=== PATIENT | female | born 1960 | race Two or more races ===

== ENCOUNTER 2017-09-04 19:20 | Inpatient (IN) | payer MEDICAID, OTHER ==
[~2017-09-04] VITALS: Ht 170.2 cm; Wt 96.3 kg
[2017-09-04] MEDS: SODIUM CHLORIDE 0.9% 1,000 ML IV SCH (01:00)
[~2017-09-04 19:20] MED LIST: ASPI81TA27 PO; ATOR80TA PO; CLOP75TA28 PO; IBUP800T24 PO; METF-370 PO; METO-158 PO; NITR400A5 TL; RAMI10CA18 PO
[2017-09-04] MEDS ORDERED: MORPHINE SULFATE 4 MG/ML SYR/VIAL IV ONE (20:30)
[2017-09-04] MEDS ORDERED: NITROGLYCERIN 0.2MG/HR TOPICAL PATCH TD ONE (20:30)
[2017-09-04 20:47] LABS: Urine Bacteria NONE SEEN /hpf (None Seen); Urine Blood Negative /uL (Negative); Urine Mucus FEW (None Seen); Urine Specific Gravity 1.016 (1.001-1.035); Urine WBC 1 /hpf (0 - 5)
[2017-09-04 20:49] LABS: Basophils # (auto) 0.1 uL; Basophils % (auto) 0.7 % (0.0-2.0); Eosinophils # (auto) 0.2 uL; Eosinophils % (auto) 2.1 % (0.0-7.0); Hematocrit 38.8 % (36.0-46.0); Hemoglobin 12.6 g/dL (12.2-16.2); Lymphocytes # (auto) 2.4 uL; Lymphocytes % (auto) 24.1 % (10.0-50.0); Mean Corpuscular Hemoglobin 28.6 pg (28.0-32.0); Mean Corpuscular Hgb Conc. 32.6 g/dL (32.0-36.0); Mean Corpuscular Volume 87.7 fL (80.0-100.0); Monocytes # (auto) 0.5 uL; Monocytes % (auto) 4.9 % (0.0-12.0); Neutrophils # (auto) 6.9 uL; Neutrophils % (auto) 68.2 % (37.0-80.0); Nucleated Red Blood Cells % 0.1 %; Platelet Count (auto) 290 10^3/uL (140-450); Red Blood Cells 4.42 10^6/uL (4.0-5.20); Red Cell Distribution Width 14.4 % (11.8-14.3); White Blood Cell 10.1 10^3/uL (4.4-10.8)
[2017-09-04 21:01] LABS: INR 0.89 (0.9-1.15); Partial Thromboplastin Time 26.8 sec (22.64-33.71); Prothrombin Time 9.7 sec (9.37-12.3)
[2017-09-04 21:04] LABS: Albumin 3.4 g/dL (3.4-5.0); Calcium 8.6 mg/dL (8.5-10.1); Magnesium 1.7 mg/dL (1.6-2.6); Potassium 4.4 mmol/L (3.5-5.1)
[2017-09-04 21:06] LABS: BUN/Creatinine Ratio 16.3
[2017-09-04 21:11] LABS: Bilirubin, Total 0.3 mg/dL (0.2-1.0); Total Protein 7.7 g/dL (6.4-8.2)
[2017-09-04] MEDS ORDERED: DEXTROSE (50%) 50ML SYRG IV PRN (23:45)
[2017-09-04] MEDS ORDERED: ONDANSETRON HCL 4 MG/2 ML VIAL IV PRN (23:45)
[2017-09-04] MEDS ORDERED: NITROGLYCERIN 0.4 MG SL TAB SL PRN (23:45)
[2017-09-04] MEDS ORDERED: ENOXAPARIN SOD 100 MG/1 ML SYRINGE SC ONE (23:45)
[2017-09-05] VITALS (7 sets, daily range): BP systolic 122–151; BP diastolic 65–82
[2017-09-05] MEDS: ACCU-CHEK COMFORT CURVE STRIP VI SCH ×4 (00:22→17:45)
[2017-09-05] MEDS: InsuLIN REG 1unit/0.01ml Soln (100units/ml) SC SCH ×5 (00:29→23:19)
[2017-09-05] MEDS: MORPHINE SULFATE 4 MG/ML SYR/VIAL IV PRN ×2 (01:00→04:20)
[2017-09-05 05:37] LABS: Basophils # (auto) 0 uL; Basophils % (auto) 0.6 % (0.0-2.0); Eosinophils # (auto) 0.2 uL; Eosinophils % (auto) 2.4 % (0.0-7.0); Hematocrit 34.6 % (36.0-46.0); Hemoglobin 11.6 g/dL (12.2-16.2); Lymphocytes # (auto) 2.9 uL; Lymphocytes % (auto) 36.5 % (10.0-50.0); Mean Corpuscular Hemoglobin 29.4 pg (28.0-32.0); Mean Corpuscular Hgb Conc. 33.5 g/dL (32.0-36.0); Mean Corpuscular Volume 87.5 fL (80.0-100.0); Monocytes # (auto) 0.4 uL; Monocytes % (auto) 4.6 % (0.0-12.0); Neutrophils # (auto) 4.5 uL; Neutrophils % (auto) 55.9 % (37.0-80.0); Nucleated Red Blood Cells % 0.1 %; Platelet Count (auto) 251 10^3/uL (140-450); Red Blood Cells 3.96 10^6/uL (4.0-5.20); Red Cell Distribution Width 14.1 % (11.8-14.3)
[2017-09-05 05:57] LABS: Albumin 3.2 g/dL (3.4-5.0); Bilirubin, Total 0.4 mg/dL (0.2-1.0); Calcium 8.6 mg/dL (8.5-10.1); Potassium 3.8 mmol/L (3.5-5.1)
[2017-09-05] MEDS ORDERED: GLIP-116 PO (09:25)
[2017-09-05] MEDS ORDERED: PRAS10TA6 PO (09:25)
[2017-09-05] MEDS ORDERED: METF-370 PO (09:25)
[2017-09-05] MEDS: FAMOTIDINE 20 MG TAB PO SCH ×2 (09:50→23:17)
[2017-09-05] MEDS: ASPirin 81 mg TAB PO SCH (09:50)
[2017-09-05] MEDS: METOPROLOL TARTRATE 50 MG TAB PO SCH ×2 (09:51→23:18)
[2017-09-05] MEDS: RAMIPRIL 10 MG CAP PO SCH (09:52)
[2017-09-05] MEDS ORDERED: PRASUGREL HCL 10 MG TAB PO SCH (10:00)
[2017-09-05] MEDS ORDERED: ENOXAPARIN SOD 40 MG/0.4 ML SYRINGE SC SCH (10:00)
[2017-09-05] MEDS ORDERED: CLOPIDOGREL BISULFATE 75 MG TAB PO SCH (10:00)
[2017-09-05] MEDS: ACETAMINOPHEN 325 MG TAB PO PRN (10:02)
[2017-09-05] MEDS ORDERED: LIDOCAINE 2%HCL (LOCAL ANESTH.) INJ 20ML MDV ONE (11:16)
[2017-09-05] MEDS ORDERED: IOHEXOL 350 MG/ML 100ML IJ ONE (11:16)
[2017-09-05] MEDS: ENOXAPARIN SOD 100 MG/1 ML SYRINGE SC SCH (12:00)
[2017-09-05] MEDS ORDERED: SODIUM CHL 0.9% 50 ML ONE (12:05)
[2017-09-05] MEDS ORDERED: fentaNYL CITRATE 100 MCG/2 ML VL ONE (12:05)
[2017-09-05] MEDS ORDERED: MIDAZOLAM HCL 1MG/1ML-2 ML VIAL ONE (12:05)
[2017-09-05] MEDS ORDERED: ANGIOMAX 250 MG VIAL IV ONE (12:05)
[2017-09-05] MEDS: SODIUM CHLORIDE 0.9% 1,000 ML IV SCH (16:25)
[2017-09-05] MEDS: HYDROcodone-ACET 5/325MG TAB PO PRN (17:57)
[2017-09-05] MEDS: ATORVASTATIN 20 MG TAB PO SCH (23:18)
[2017-09-06] VITALS (7 sets, daily range): BP systolic 97–131; BP diastolic 46–71
[2017-09-06] MEDS: ENOXAPARIN SOD 100 MG/1 ML SYRINGE SC SCH ×2 (00:12→11:38)
[2017-09-06] MEDS: ACCU-CHEK COMFORT CURVE STRIP VI SCH ×4 (00:13→17:40)
[2017-09-06] MEDS: MORPHINE SULFATE 4 MG/ML SYR/VIAL IV PRN (01:16)
[2017-09-06] MEDS: InsuLIN REG 1unit/0.01ml Soln (100units/ml) SC SCH ×3 (07:32→17:40)
[2017-09-06] MEDS: ACETAMINOPHEN 325 MG TAB PO PRN ×2 (07:34→22:47)
[2017-09-06] MEDS: FAMOTIDINE 20 MG TAB PO SCH ×2 (09:19→22:46)
[2017-09-06] MEDS: ASPirin 81 mg TAB PO SCH (09:20)
[2017-09-06] MEDS: RAMIPRIL 10 MG CAP PO SCH (09:20)
[2017-09-06] MEDS: METOPROLOL TARTRATE 50 MG TAB PO SCH ×2 (09:20→22:45)
[2017-09-06] MEDS: SODIUM CHLORIDE 0.9% 1,000 ML IV SCH (09:21)
[2017-09-06] MEDS: ATORVASTATIN 20 MG TAB PO SCH (22:45)
[2017-09-07] MEDS: ENOXAPARIN SOD 100 MG/1 ML SYRINGE SC SCH ×2 (01:52→12:15)
[2017-09-07] MEDS: InsuLIN REG 1unit/0.01ml Soln (100units/ml) SC SCH ×4 (01:53→17:35)
[2017-09-07] MEDS: SODIUM CHLORIDE 0.9% 1,000 ML IV SCH ×2 (01:55→18:40)
[2017-09-07 05:00] VITALS: BP 114/68
[2017-09-07] MEDS: ACCU-CHEK COMFORT CURVE STRIP VI SCH ×4 (06:13→17:35)
[2017-09-07 08:00] VITALS: BP 131/73
[2017-09-07 09:00] VITALS: BP 131/73
[2017-09-07] MEDS: METOPROLOL TARTRATE 50 MG TAB PO SCH ×2 (09:15→22:27)
[2017-09-07] MEDS: RAMIPRIL 10 MG CAP PO SCH (09:15)
[2017-09-07] MEDS: FAMOTIDINE 20 MG TAB PO SCH ×2 (09:15→22:27)
[2017-09-07] MEDS: ASPirin 81 mg TAB PO SCH (09:16)
[2017-09-07 13:00] VITALS: BP 122/82
[2017-09-07 17:00] VITALS: BP 135/70
[2017-09-07] MEDS: HYDROcodone-ACET 5/325MG TAB PO PRN (17:11)
[2017-09-07 22:00] VITALS: BP 129/70
[2017-09-07] MEDS: ATORVASTATIN 20 MG TAB PO SCH (22:27)
[2017-09-08] MEDS: ENOXAPARIN SOD 100 MG/1 ML SYRINGE SC SCH ×3 (00:24→23:45)
[2017-09-08] MEDS: InsuLIN REG 1unit/0.01ml Soln (100units/ml) SC SCH ×5 (00:25→23:40)
[2017-09-08] MEDS: ACCU-CHEK COMFORT CURVE STRIP VI SCH ×5 (00:25→23:40)
[2017-09-08 05:00] VITALS: BP 131/67
[2017-09-08 05:52] LABS: Basophils # (auto) 0.1 uL; Basophils % (auto) 0.9 % (0.0-2.0); Eosinophils # (auto) 0.2 uL; Eosinophils % (auto) 3.7 % (0.0-7.0); Hematocrit 35.1 % (36.0-46.0); Hemoglobin 11.4 g/dL (12.2-16.2); Lymphocytes # (auto) 1.7 uL; Lymphocytes % (auto) 26.2 % (10.0-50.0); Mean Corpuscular Hemoglobin 28.7 pg (28.0-32.0); Mean Corpuscular Hgb Conc. 32.5 g/dL (32.0-36.0); Mean Corpuscular Volume 88.2 fL (80.0-100.0); Monocytes # (auto) 0.4 uL; Monocytes % (auto) 6.2 % (0.0-12.0); Nucleated Red Blood Cells % 0.1 %; Platelet Count (auto) 248 10^3/uL (140-450); Red Blood Cells 3.98 10^6/uL (4.0-5.20); Red Cell Distribution Width 14.1 % (11.8-14.3); White Blood Cell 6.4 10^3/uL (4.4-10.8)
[2017-09-08 06:01] LABS: BUN/Creatinine Ratio 14.8; Calcium 8.7 mg/dL (8.5-10.1)
[2017-09-08] MEDS: glipiZIDE 5 MG TAB PO SCH (06:37)
[2017-09-08 08:00] VITALS: BP 132/53
[2017-09-08 09:00] VITALS: BP 132/53
[2017-09-08] MEDS: FAMOTIDINE 20 MG TAB PO SCH ×2 (11:05→22:52)
[2017-09-08] MEDS: METOPROLOL TARTRATE 50 MG TAB PO SCH ×2 (11:05→22:54)
[2017-09-08] MEDS: ASPirin 81 mg TAB PO SCH (11:06)
[2017-09-08] MEDS: RAMIPRIL 10 MG CAP PO SCH (11:06)
[2017-09-08] MEDS: SODIUM CHLORIDE 0.9% 1,000 ML IV SCH (11:51)
[2017-09-08 13:00] VITALS: BP 134/77
[2017-09-08 17:00] VITALS: BP 142/79
[2017-09-08 22:00] VITALS: BP 131/74
[2017-09-08] MEDS: ATORVASTATIN 20 MG TAB PO SCH (22:52)
[2017-09-09 05:00] VITALS: BP 146/70
[2017-09-09 05:58] LABS: Basophils # (auto) 0 uL; Basophils % (auto) 0.6 % (0.0-2.0); Eosinophils # (auto) 0.2 uL; Eosinophils % (auto) 3.3 % (0.0-7.0); Hematocrit 35.2 % (36.0-46.0); Hemoglobin 11.6 g/dL (12.2-16.2); Lymphocytes # (auto) 1.7 uL; Lymphocytes % (auto) 24.7 % (10.0-50.0); Mean Corpuscular Hemoglobin 29.1 pg (28.0-32.0); Mean Corpuscular Volume 88.3 fL (80.0-100.0); Monocytes # (auto) 0.4 uL; Monocytes % (auto) 6.2 % (0.0-12.0); Neutrophils # (auto) 4.6 uL; Neutrophils % (auto) 65.2 % (37.0-80.0); Nucleated Red Blood Cells % 0.1 %; Platelet Count (auto) 252 10^3/uL (140-450); Red Blood Cells 3.99 10^6/uL (4.0-5.20); Red Cell Distribution Width 14.5 % (11.8-14.3)
[2017-09-09 06:20] LABS: Calcium 8.9 mg/dL (8.5-10.1)
[2017-09-09] MEDS: ACCU-CHEK COMFORT CURVE STRIP VI SCH ×4 (06:28→23:30)
[2017-09-09] MEDS: InsuLIN REG 1unit/0.01ml Soln (100units/ml) SC SCH ×4 (06:29→23:40)
[2017-09-09] MEDS: SODIUM CHLORIDE 0.9% 1,000 ML IV SCH ×2 (06:31→20:13)
[2017-09-09] MEDS: glipiZIDE 5 MG TAB PO SCH (06:31)
[2017-09-09 09:00] VITALS: BP 135/71
[2017-09-09] MEDS: ASPirin 81 mg TAB PO SCH (10:30)
[2017-09-09] MEDS: METOPROLOL TARTRATE 50 MG TAB PO SCH ×2 (10:30→22:05)
[2017-09-09] MEDS: RAMIPRIL 10 MG CAP PO SCH (10:32)
[2017-09-09] MEDS: FAMOTIDINE 20 MG TAB PO SCH ×2 (10:32→22:06)
[2017-09-09] MEDS: ENOXAPARIN SOD 100 MG/1 ML SYRINGE SC SCH (12:51)
[2017-09-09 13:00] VITALS: BP 122/76
[2017-09-09 16:57] VITALS: BP 149/80
[2017-09-09 22:00] VITALS: BP 136/70
[2017-09-09] MEDS: ATORVASTATIN 20 MG TAB PO SCH (22:05)
[2017-09-09] MEDS: ACETAMINOPHEN 325 MG TAB PO PRN (22:11)
[2017-09-09] MEDS ORDERED: ENOXAPARIN SOD 100 MG/1 ML SYRINGE SC ONE (23:30)
[2017-09-10] VITALS (8 sets, daily range): BP systolic 121–149; BP diastolic 69–78
[2017-09-10] MEDS: ACCU-CHEK COMFORT CURVE STRIP VI SCH ×4 (06:12→23:43)
[2017-09-10] MEDS: InsuLIN REG 1unit/0.01ml Soln (100units/ml) SC SCH ×4 (06:13→23:43)
[2017-09-10] MEDS: glipiZIDE 5 MG TAB PO SCH (06:13)
[2017-09-10 06:33] LABS: BUN/Creatinine Ratio 18.8; Calcium 8.7 mg/dL (8.5-10.1); Magnesium 1.9 mg/dL (1.6-2.6); Potassium 4.2 mmol/L (3.5-5.1)
[2017-09-10 06:59] LABS: Basophils # (auto) 0 uL; Basophils % (auto) 0.6 % (0.0-2.0); Eosinophils # (auto) 0.2 uL; Eosinophils % (auto) 3.6 % (0.0-7.0); Hematocrit 34.8 % (36.0-46.0); Hemoglobin 11.4 g/dL (12.2-16.2); Lymphocytes # (auto) 1.7 uL; Lymphocytes % (auto) 24.8 % (10.0-50.0); Mean Corpuscular Hgb Conc. 32.8 g/dL (32.0-36.0); Mean Corpuscular Volume 88.5 fL (80.0-100.0); Monocytes # (auto) 0.4 uL; Monocytes % (auto) 5.8 % (0.0-12.0); Neutrophils # (auto) 4.5 uL; Neutrophils % (auto) 65.2 % (37.0-80.0); Nucleated Red Blood Cells % 0.1 %; Platelet Count (auto) 254 10^3/uL (140-450); Red Blood Cells 3.93 10^6/uL (4.0-5.20); Red Cell Distribution Width 14.2 % (11.8-14.3); White Blood Cell 6.9 10^3/uL (4.4-10.8)
[2017-09-10] MEDS: ASPirin 81 mg TAB PO SCH (10:00)
[2017-09-10] MEDS: FAMOTIDINE 20 MG TAB PO SCH ×2 (10:27→22:02)
[2017-09-10] MEDS: METOPROLOL TARTRATE 50 MG TAB PO SCH ×2 (10:27→22:05)
[2017-09-10] MEDS: RAMIPRIL 10 MG CAP PO SCH (10:28)
[2017-09-10] MEDS: SODIUM CHLORIDE 0.9% 1,000 ML IV SCH (12:53)
[2017-09-10] MEDS ORDERED: ACCU-CHEK COMFORT CURVE STRIP VI ONE (13:15)
[2017-09-10] MEDS ORDERED: VANCOMYCIN 1GM/250ML 250 ML IV ONE (13:15)
[2017-09-10] MEDS ORDERED: AZTREONAM 1GM INJ 1 GM in D5W 5% 50 ML IV ONE (13:15)
[2017-09-10] MEDS ORDERED: HYDR-4683 PO (16:40)
[2017-09-10] MEDS: HYDROcodone-ACET 5/325MG TAB PO PRN ×2 (16:54→22:05)
[2017-09-10] MEDS ORDERED: ASCORBIC ACID 500 MG TAB PO ONE (22:00)
[2017-09-10] MEDS: ATORVASTATIN 20 MG TAB PO SCH (22:02)
[2017-09-10] MEDS: ACETAMINOPHEN 325 MG TAB PO PRN (22:20)
[2017-09-11] VITALS (57 sets, daily range): BP systolic 16–150; BP diastolic 2–86
[2017-09-11] MEDS ORDERED: CHLORHEXIDINE 4% TOPICAL soln 118ML TOP ONE (02:00)
[2017-09-11 04:04] LABS: Basophils # (auto) 0 uL; Basophils % (auto) 0.6 % (0.0-2.0); Eosinophils # (auto) 0.3 uL; Eosinophils % (auto) 3.5 % (0.0-7.0); Hematocrit 33.3 % (36.0-46.0); Hemoglobin 11.2 g/dL (12.2-16.2); Lymphocytes # (auto) 2.2 uL; Lymphocytes % (auto) 27.2 % (10.0-50.0); Mean Corpuscular Hemoglobin 29.5 pg (28.0-32.0); Mean Corpuscular Hgb Conc. 33.5 g/dL (32.0-36.0); Monocytes # (auto) 0.5 uL; Monocytes % (auto) 6.4 % (0.0-12.0); Neutrophils % (auto) 62.3 % (37.0-80.0); Nucleated Red Blood Cells % 0.1 %; Platelet Count (auto) 264 10^3/uL (140-450); Red Blood Cells 3.78 10^6/uL (4.0-5.20); Red Cell Distribution Width 14.4 % (11.8-14.3)
[2017-09-11 04:24] LABS: BUN/Creatinine Ratio 14.8; Calcium 8.5 mg/dL (8.5-10.1); Magnesium 1.9 mg/dL (1.6-2.6); Potassium 3.8 mmol/L (3.5-5.1)
[2017-09-11] MEDS: SODIUM CHLORIDE 0.9% 1,000 ML IV SCH ×2 (05:33→18:15)
[2017-09-11] MEDS: ACCU-CHEK COMFORT CURVE STRIP VI SCH ×11 (06:00→23:00)
[2017-09-11] MEDS: InsuLIN REG 1unit/0.01ml Soln (100units/ml) SC SCH ×2 (06:00→12:00)
[2017-09-11] MEDS ORDERED: BACITRACIN INJ 50000 UNIT VIAL ONE (06:39)
[2017-09-11] MEDS ORDERED: NEOMYCIN-BACITRACIN-POLYM 15GM TOP OINT TOP ONE (06:39)
[2017-09-11] MEDS ORDERED: HEPARIN 1,000 UNITS/ml 1ML VIAL ONE (06:39)
[2017-09-11] MEDS ORDERED: PAPAVERINE HCL 60 MG/2 ML 2ML VIAL ONE (06:39)
[2017-09-11] MEDS: glipiZIDE 5 MG TAB PO SCH (06:42)
[2017-09-11] MEDS ORDERED: MIDAZOLAM HCL 1MG/1ML-2 ML VIAL ONE (07:14)
[2017-09-11] MEDS ORDERED: fentaNYL CITRATE 100 MCG/2 ML VL ONE (07:16)
[2017-09-11] MEDS ORDERED: ALBUMIN 25% 400 ML IV ONE (07:25)
[2017-09-11] MEDS ORDERED: ALBUMIN 25% 50 ML IV ONE ×3 (07:30→17:15)
[2017-09-11] MEDS ORDERED: DOPamine 1600MCG/ML D5W 250 ML IV SCH ×2 (07:30→14:30)
[2017-09-11] MEDS ORDERED: DOPamine 3200MCG/ML 250 ML IV SCH (07:33)
[2017-09-11] MEDS ORDERED: PLASMA-LYTE A pH7.4 4,000 ML INJ ONE (07:33)
[2017-09-11] MEDS ORDERED: AMINOCAPROIC ACID 10 GM in SODIUM CHL 0.9% 100 ML IV ONE (08:30)
[2017-09-11] MEDS ORDERED: PHENYLEPHRINE INJ 20 MG in SODIUM CHL 0.9% 250 ML IV ONE (08:30)
[2017-09-11] MEDS ORDERED: InsuLIN R (HUMAN) 100 UNITS in SODIUM CHL 0.9% 99 ML IV ONE (08:30)
[2017-09-11] MEDS ORDERED: VASOPRESSIN 50 UNITS in SODIUM CHL 0.9% 247.5 ML IV ONE (08:30)
[2017-09-11] MEDS ORDERED: NOREPINEPHRINE 8 MG/250ML KIT 250 ML IV ONE (08:30)
[2017-09-11] MEDS ORDERED: EPINEPHrine HCL 4 MG in D5W 5% 250 ML IV ONE (08:30)
[2017-09-11] MEDS ORDERED: HEPARIN 30000 UNITS in SODIUM CHLORIDE 0.9% 1000 ML IV ONE (08:30)
[2017-09-11] MEDS ORDERED: AMINOCAPROIC ACID 5 GM in SODIUM CHL 0.9% 250 ML IV ONE (08:30)
[2017-09-11] MEDS: RAMIPRIL 10 MG CAP PO SCH (10:00)
[2017-09-11] MEDS: ASPirin 81 mg TAB PO SCH (10:00)
[2017-09-11] MEDS: METOPROLOL TARTRATE 50 MG TAB PO SCH ×2 (10:00→23:01)
[2017-09-11 12:59] LABS: Basophils # (auto) 0 uL; Basophils % (auto) 0.2 % (0.0-2.0); Eosinophils # (auto) 0.2 uL; Hemoglobin 7.4 g/dL (12.2-16.2); Mean Corpuscular Volume 87.3 fL (80.0-100.0); Monocytes # (auto) 0.4 uL; Monocytes % (auto) 2.1 % (0.0-12.0)
[2017-09-11 13:01] LABS: Eosinophils % (auto) 0.9 % (0.0-7.0); Hematocrit 22.6 % (36.0-46.0); Lymphocytes # (auto) 1.4 uL; Lymphocytes % (auto) 8.2 % (10.0-50.0); Mean Corpuscular Hemoglobin 28.6 pg (28.0-32.0); Mean Corpuscular Hgb Conc. 32.7 g/dL (32.0-36.0); Neutrophils # (auto) 15.2 uL; Neutrophils % (auto) 88.6 % (37.0-80.0); Platelet Count (auto) 190 10^3/uL (140-450); Red Blood Cells 2.59 10^6/uL (4.0-5.20); Red Cell Distribution Width 14.1 % (11.8-14.3); White Blood Cell 17.1 10^3/uL (4.4-10.8)
[2017-09-11] MEDS ORDERED: CHLORHEXIDINE 0.12% ORAL rinse 473ML MT ONE (13:15)
[2017-09-11 13:25] LABS: BUN/Creatinine Ratio 10.5; Calcium 7.7 mg/dL (8.5-10.1); Potassium 4.1 mmol/L (3.5-5.1)
[2017-09-11 13:31] LABS: Bilirubin, Total 0.7 mg/dL (0.2-1.0); Total Protein 6.2 g/dL (6.4-8.2)
[2017-09-11 13:35] LABS: INR 2.05 (0.9-1.15)
[2017-09-11] MEDS ORDERED: INSULIN DRIP 100 UNIT/100ML 100 ML IV SCH (13:51)
[2017-09-11] MEDS ORDERED: SODIUM CHLORIDE 0.9% 1,000 ML IV SCH (13:55)
[2017-09-11] MEDS: PROPOFOL 100 ML IV SCH (13:55)
[2017-09-11] MEDS ORDERED: DEXTROSE (50%) 50ML SYRG IV PRN (14:00)
[2017-09-11] MEDS ORDERED: AZTREONAM 1GM INJ 1 GM in D5W 5% 50 ML IV SCH (14:00)
[2017-09-11] MEDS ORDERED: AMIODARONE HCL 150 MG in D5W 5% 100 ML IV ONE (14:00)
[2017-09-11] MEDS ORDERED: MAGNESIUM SULFATE 1GM/100ML 100 ML IV PRN (14:00)
[2017-09-11] MEDS ORDERED: METOCLOPRAMIDE HCL 5MG/ml INJ 2ml VIAL IV PRN (14:00)
[2017-09-11] MEDS ORDERED: SODIUM BICARBONATE 8.4% INJ 50ML SYRINGE IV PRN (14:00)
[2017-09-11] MEDS ORDERED: PROPRANOLOL HCL 1 MG/ML VIAL IV PRN (14:00)
[2017-09-11] MEDS ORDERED: ZOLPIDEM TARTRATE 5 MG TAB PO PRN (14:00)
[2017-09-11] MEDS ORDERED: VANCOMYCIN 1GM/250ML 250 ML IV SCH (14:00)
[2017-09-11] MEDS ORDERED: MORPHINE SULFATE 4 MG/ML SYR/VIAL IV PRN ×3 (14:00)
[2017-09-11] MEDS ORDERED: FUROSEMIDE 20 MG/2 ML VIAL IV PRN (14:00)
[2017-09-11] MEDS ORDERED: ALBUMIN 5% 250 ML IV PRN ×2 (14:00)
[2017-09-11] MEDS ORDERED: AMIODARONE HCL 900 MG in DEXTROSE 500 ML IV SCH (14:05)
[2017-09-11] MEDS ORDERED: HEPARIN SODIUM (PORCINE) 5000 UNITS/ML 1ML VIAL SC ONE (14:14)
[2017-09-11] MEDS ORDERED: PHENYLEPHRINE HCL 10 MG/ML VL IV ONE (14:14)
[2017-09-11] MEDS ORDERED: POTASSIUM CHL 2MEQ/ML 20ML IV ONE (14:14)
[2017-09-11] MEDS ORDERED: ADENOSINE 6 MG/2 ML INJ IV ONE (14:14)
[2017-09-11] MEDS ORDERED: AMINOCAPROIC ACID 5 GM/20 ML VL IV ONE (14:14)
[2017-09-11] MEDS ORDERED: CALCIUM CHLOR(10%) 100MG/ML 10ML SYRINGE IV ONE (14:14)
[2017-09-11] MEDS ORDERED: SODIUM BICARBONATE 8.4 % INJ 50ML VIAL IV ONE (14:14)
[2017-09-11] MEDS ORDERED: MAGNESIUM SULF 50% 40 MEQ/10 ML VL IV ONE (14:14)
[2017-09-11] MEDS ORDERED: LIDOCAINE HCL 100 MG/5ML (2%) SYRG INJ IV ONE (14:14)
[2017-09-11] MEDS ORDERED: MANNITOL 20% SOLN 100 gm/500ml BAG IV ONE (14:20)
[2017-09-11 14:43] LABS: Partial Thromboplastin Time > 170.00 sec (22.64-33.71)
[2017-09-11 14:51] LABS: Basophils # (auto) 0 uL; Basophils % (auto) 0.1 % (0.0-2.0); Eosinophils # (auto) 0 uL; Eosinophils % (auto) 0.1 % (0.0-7.0); Hematocrit 26.7 % (36.0-46.0); Lymphocytes % (auto) 6.1 % (10.0-50.0); Mean Corpuscular Hemoglobin 29.5 pg (28.0-32.0); Mean Corpuscular Hgb Conc. 33.8 g/dL (32.0-36.0); Mean Corpuscular Volume 87.2 fL (80.0-100.0); Monocytes # (auto) 0.3 uL; Monocytes % (auto) 1.8 % (0.0-12.0); Neutrophils # (auto) 15.6 uL; Neutrophils % (auto) 91.9 % (37.0-80.0); Platelet Count (auto) 222 10^3/uL (140-450); Red Blood Cells 3.06 10^6/uL (4.0-5.20); Red Cell Distribution Width 14.2 % (11.8-14.3); White Blood Cell 16.9 10^3/uL (4.4-10.8)
[2017-09-11 15:02] LABS: INR 1.05 (0.9-1.15); Partial Thromboplastin Time 26.4 sec (22.64-33.71); Prothrombin Time 11.4 sec (9.37-12.3)
[2017-09-11 15:11] LABS: Albumin 4.4 g/dL (3.4-5.0); BUN/Creatinine Ratio 10.3; Bilirubin, Total 1.2 mg/dL (0.2-1.0); Calcium 8.2 mg/dL (8.5-10.1); Magnesium 3.5 mg/dL (1.6-2.6); Phosphorus 1.8 mg/dL (2.5-4.90); Potassium 3.5 mmol/L (3.5-5.1); Total Protein 7.1 g/dL (6.4-8.2)
[2017-09-11] MEDS: DEXMEDETOMIDINE HCL 400 MCG in D5W 5% 96 ML IV SCH (15:41)
[2017-09-11] MEDS: NITROGLYCERIN 50MG/250ML 250 ML IV SCH (15:42)
[2017-09-11] MEDS: POTASSIUM CHL 20MEQ/100ML 100 ML IV PRN ×2 (15:52→22:49)
[2017-09-11] MEDS ORDERED: POTASSIUM PHOSPHATE 22 MEQ in SODIUM CHL 0.9% 100 ML IV ONE (16:00)
[2017-09-11] MEDS: AZTREONAM 1GM INJ 1 GM in D5W 5% 50 ML IV SCH (16:00)
[2017-09-11] MEDS: PHENYLEPHRINE IV 250 ML IV SCH (16:08)
[2017-09-11] MEDS: NICARDIPINE 25MG/250ML BAG KIT 250 ML IV SCH ×3 (16:08→23:01)
[2017-09-11] MEDS: SODIUM CHLORIDE 0.9% 500 ML IV SCH (16:17)
[2017-09-11] MEDS: VANCOMYCIN 1GM/250ML 250 ML IV SCH (17:00)
[2017-09-11] MEDS: DOPamine 1600MCG/ML D5W 250 ML IV SCH (17:45)
[2017-09-11] MEDS: ACETAMINOPHEN IV 1000 MG/100ML (10MG/ML) IV PRN (18:37)
[2017-09-11] MEDS: KETOROLAC TROMETH 30 MG/ML 1ML VIAL IV PRN (19:32)
[2017-09-11] MEDS: AMIODARONE HCL 900 MG in DEXTROSE 500 ML IV SCH (20:05)
[2017-09-11] MEDS: IPRATROPIUM BROM 0.5 MG/2.5ML INH SOL NEB SCH ×2 (20:08→22:00)
[2017-09-11] MEDS: ACETYLCYSTEINE 10 %(100MG/ML) SOL 4ML NEB SCH (20:08)
[2017-09-11 20:18] LABS: Basophils # (auto) 0.1 uL; Basophils % (auto) 0.4 % (0.0-2.0); Eosinophils # (auto) 0 uL; Hematocrit 28.7 % (36.0-46.0); Hemoglobin 9.5 g/dL (12.2-16.2); Lymphocytes # (auto) 0.4 uL; Lymphocytes % (auto) 3.3 % (10.0-50.0); Mean Corpuscular Hemoglobin 29.5 pg (28.0-32.0); Mean Corpuscular Hgb Conc. 33.1 g/dL (32.0-36.0); Monocytes # (auto) 0.4 uL; Monocytes % (auto) 2.9 % (0.0-12.0); Neutrophils # (auto) 12.1 uL; Neutrophils % (auto) 93.4 % (37.0-80.0); Platelet Count (auto) 201 10^3/uL (140-450); Red Blood Cells 3.22 10^6/uL (4.0-5.20); Red Cell Distribution Width 14.3 % (11.8-14.3)
[2017-09-11 20:36] LABS: BUN/Creatinine Ratio 11.8; Calcium 8.1 mg/dL (8.5-10.1); Magnesium 2.9 mg/dL (1.6-2.6); Potassium 3.6 mmol/L (3.5-5.1)
[2017-09-11] MEDS: CHLORHEXIDINE 0.12% ORAL rinse 473ML MT SCH (22:00)
[2017-09-11] MEDS ORDERED: InsuLIN REG 1unit/0.01ml Soln (100units/ml) ONE (23:32)
[2017-09-12] VITALS (89 sets, daily range): BP systolic 22–151; BP diastolic 7–90
[2017-09-12] MEDS: AZTREONAM 1GM INJ 1 GM in D5W 5% 50 ML IV SCH ×3 (00:30→16:45)
[2017-09-12] MEDS: MORPHINE SULFATE 4 MG/ML SYR/VIAL IV PRN (00:34)
[2017-09-12] MEDS: POTASSIUM CHL 20MEQ/100ML 100 ML IV PRN ×2 (00:49→13:13)
[2017-09-12] MEDS: ACCU-CHEK COMFORT CURVE STRIP VI SCH ×16 (01:00→22:00)
[2017-09-12] MEDS: IPRATROPIUM BROM 0.5 MG/2.5ML INH SOL NEB SCH ×6 (02:00→22:00)
[2017-09-12] MEDS: ACETAMINOPHEN IV 1000 MG/100ML (10MG/ML) IV PRN (02:10)
[2017-09-12] MEDS: ONDANSETRON HCL 4 MG/2 ML VIAL IV PRN ×3 (02:10→17:30)
[2017-09-12 02:51] LABS: Basophils # (auto) 0.1 uL; Basophils % (auto) 0.4 % (0.0-2.0); Eosinophils # (auto) 0 uL; Hematocrit 26.5 % (36.0-46.0); Hemoglobin 8.7 g/dL (12.2-16.2); Lymphocytes # (auto) 0.6 uL; Lymphocytes % (auto) 4.5 % (10.0-50.0); Mean Corpuscular Hgb Conc. 32.7 g/dL (32.0-36.0); Mean Corpuscular Volume 88.8 fL (80.0-100.0); Monocytes # (auto) 0.6 uL; Monocytes % (auto) 4.8 % (0.0-12.0); Neutrophils # (auto) 12.1 uL; Neutrophils % (auto) 90.3 % (37.0-80.0); Platelet Count (auto) 169 10^3/uL (140-450); Red Blood Cells 2.99 10^6/uL (4.0-5.20); Red Cell Distribution Width 14.5 % (11.8-14.3); White Blood Cell 13.4 10^3/uL (4.4-10.8)
[2017-09-12 03:05] LABS: BUN/Creatinine Ratio 18.2; Calcium 7.6 mg/dL (8.5-10.1); Magnesium 2.9 mg/dL (1.6-2.6); Phosphorus 3.6 mg/dL (2.5-4.90); Potassium 4.2 mmol/L (3.5-5.1)
[2017-09-12] MEDS: VANCOMYCIN 1GM/250ML 250 ML IV SCH ×2 (04:00→17:37)
[2017-09-12] MEDS: NICARDIPINE 25MG/250ML BAG KIT 250 ML IV SCH ×4 (04:55→19:55)
[2017-09-12] MEDS: SODIUM CHLORIDE 0.9% 1,000 ML IV SCH ×2 (05:30→16:29)
[2017-09-12] MEDS: ACETYLCYSTEINE 10 %(100MG/ML) SOL 4ML NEB SCH ×3 (06:11→22:00)
[2017-09-12] MEDS: CALCIUM GLUC 4.65meq/50ml D5AE 50 ML IV PRN ×4 (06:40→13:13)
[2017-09-12] MEDS: KETOROLAC TROMETH 30 MG/ML 1ML VIAL IV PRN (07:37)
[2017-09-12] MEDS ORDERED: HYDROcodone-ACET 5/325MG TAB PO PRN (07:45)
[2017-09-12] MEDS: glipiZIDE 5 MG TAB PO SCH (08:28)
[2017-09-12] MEDS: DOPamine 1600MCG/ML D5W 250 ML IV SCH (09:38)
[2017-09-12] MEDS ORDERED: MIDAZOLAM HCL 1MG/1ML-2 ML VIAL ONE (09:40)
[2017-09-12] MEDS ORDERED: fentaNYL CITRATE 100 MCG/2 ML VL ONE (09:40)
[2017-09-12] MEDS ORDERED: LIDOCAINE 2%HCL (LOCAL ANESTH.) INJ 20ML MDV ONE (09:50)
[2017-09-12] MEDS ORDERED: PANTOPRAZOLE 40 MG/10 ML VIAL IV SCH (10:00)
[2017-09-12] MEDS: METOPROLOL TARTRATE 50 MG TAB PO SCH (11:30)
[2017-09-12] MEDS: CHLORHEXIDINE 0.12% ORAL rinse 473ML MT SCH ×2 (11:31→22:14)
[2017-09-12 11:35] LABS: Basophils # (auto) 0.1 uL; Basophils % (auto) 0.3 % (0.0-2.0); Eosinophils # (auto) 0 uL; Hemoglobin 8.8 g/dL (12.2-16.2); Lymphocytes # (auto) 1.3 uL; Lymphocytes % (auto) 7.6 % (10.0-50.0); Mean Corpuscular Hemoglobin 29.3 pg (28.0-32.0); Mean Corpuscular Hgb Conc. 32.7 g/dL (32.0-36.0); Mean Corpuscular Volume 89.5 fL (80.0-100.0); Neutrophils # (auto) 14.3 uL; Neutrophils % (auto) 86.1 % (37.0-80.0); Nucleated Red Blood Cells % 0.1 %; Platelet Count (auto) 172 10^3/uL (140-450); Red Blood Cells 3.01 10^6/uL (4.0-5.20); White Blood Cell 16.6 10^3/uL (4.4-10.8)
[2017-09-12 11:59] LABS: Albumin 3.8 g/dL (3.4-5.0); BUN/Creatinine Ratio 20.3; Calcium 7.8 mg/dL (8.5-10.1)
[2017-09-12 12:02] LABS: Bilirubin, Total 0.8 mg/dL (0.2-1.0); Total Protein 6.4 g/dL (6.4-8.2)
[2017-09-12] MEDS: DEXMEDETOMIDINE HCL 400 MCG in D5W 5% 96 ML IV SCH (12:55)
[2017-09-12] MEDS: fentaNYL CITRATE 100 MCG/2 ML VL IV PRN (14:54)
[2017-09-12] MEDS ORDERED: METOCLOPRAMIDE HCL 5MG/ml INJ 2ml VIAL IV PRN (15:15)
[2017-09-12] MEDS ORDERED: SENNA 8.6 MG TAB PO PRN (15:15)
[2017-09-12] MEDS ORDERED: DEXTROSE (50%) 50ML SYRG IV PRN ×2 (15:15)
[2017-09-12] MEDS ORDERED: POTASSIUM CHL 20MEQ/100ML 100 ML IV PRN (15:15)
[2017-09-12] MEDS ORDERED: ZOLPIDEM TARTRATE 5 MG TAB PO PRN (15:15)
[2017-09-12] MEDS ORDERED: ALBUMIN 25% 50 ML IV ONE (15:45)
[2017-09-12] MEDS ORDERED: ACCU-CHEK COMFORT CURVE STRIP VI SCH (16:00)
[2017-09-12] MEDS ORDERED: InsuLIN REG 1unit/0.01ml Soln (100units/ml) SC SCH (16:00)
[2017-09-12] MEDS: SODIUM CHLORIDE 0.9% 500 ML IV SCH (16:39)
[2017-09-12] MEDS: PHENYLEPHRINE IV 250 ML IV SCH (16:39)
[2017-09-12] MEDS: NITROGLYCERIN 50MG/250ML 250 ML IV SCH (16:39)
[2017-09-12] MEDS: PROPOFOL 100 ML IV SCH (16:45)
[2017-09-12 17:33] LABS: Hematocrit 27.9 % (36.0-46.0); Hemoglobin 8.9 g/dL (12.2-16.2)
[2017-09-12] MEDS: FUROSEMIDE 40 MG TAB PO SCH ×2 (17:38→21:16)
[2017-09-12 17:58] LABS: Magnesium 2.5 mg/dL (1.6-2.6); Potassium 5.2 mmol/L (3.5-5.1)
[2017-09-12] MEDS: metFORMIN HYDROCHLORIDE 500 MG TAB PO SCH (18:00)
[2017-09-12] MEDS: InsuLIN REG 1unit/0.01ml Soln (100units/ml) SC SCH ×2 (18:13→22:30)
[2017-09-12] MEDS ORDERED: NOREPINEPHRINE 8 MG/250ML KIT 250 ML IV SCH (19:41)
[2017-09-12] MEDS: AMIODARONE HCL 900 MG in DEXTROSE 500 ML IV SCH (21:42)
[2017-09-12] MEDS ORDERED: ATORVASTATIN 20 MG TAB PO SCH (22:00)
[2017-09-12] MEDS: DOCUSATE SOD 100 MG CAP PO SCH (22:14)
[2017-09-12] MEDS: Boost Glucose Control 8 Ounces PO SCH (22:55)
[2017-09-12] MEDS: HYDROcodone-ACET 7.5/325MG TAB PO PRN (22:55)
[2017-09-13] VITALS (92 sets, daily range): BP systolic 91–143; BP diastolic 34–75
[2017-09-13] MEDS: ASCORBIC ACID 500 MG TAB PO SCH ×3 (00:46→22:00)
[2017-09-13] MEDS: POTASSIUM CHL 20 Meq TABLET PO SCH ×3 (00:46→22:00)
[2017-09-13] MEDS: NICARDIPINE 25MG/250ML BAG KIT 250 ML IV SCH ×5 (00:55→20:55)
[2017-09-13] MEDS: IPRATROPIUM BROM 0.5 MG/2.5ML INH SOL NEB SCH ×6 (02:00→22:24)
[2017-09-13] MEDS: ACCU-CHEK COMFORT CURVE STRIP VI SCH ×5 (02:24→22:00)
[2017-09-13] MEDS: InsuLIN REG 1unit/0.01ml Soln (100units/ml) SC SCH ×5 (02:25→22:00)
[2017-09-13 04:06] LABS: Basophils # (auto) 0 uL; Basophils % (auto) 0.2 % (0.0-2.0); Eosinophils # (auto) 0 uL; Hematocrit 27.1 % (36.0-46.0); Hemoglobin 8.7 g/dL (12.2-16.2); Lymphocytes # (auto) 1.7 uL; Lymphocytes % (auto) 11.2 % (10.0-50.0); Mean Corpuscular Hemoglobin 29.1 pg (28.0-32.0); Mean Corpuscular Hgb Conc. 32.1 g/dL (32.0-36.0); Mean Corpuscular Volume 90.5 fL (80.0-100.0); Monocytes # (auto) 0.9 uL; Monocytes % (auto) 5.7 % (0.0-12.0); Neutrophils # (auto) 12.4 uL; Neutrophils % (auto) 82.9 % (37.0-80.0); Nucleated Red Blood Cells % 0.1 %; Platelet Count (auto) 172 10^3/uL (140-450); Red Cell Distribution Width 14.7 % (11.8-14.3)
[2017-09-13 04:23] LABS: Albumin 3.6 g/dL (3.4-5.0); BUN/Creatinine Ratio 21.7; Bilirubin, Total 0.9 mg/dL (0.2-1.0); Calcium 7.9 mg/dL (8.5-10.1); Magnesium 2.4 mg/dL (1.6-2.6); Potassium 4.5 mmol/L (3.5-5.1); Total Protein 6.5 g/dL (6.4-8.2)
[2017-09-13] MEDS: VANCOMYCIN 1GM/250ML 250 ML IV SCH (04:23)
[2017-09-13] MEDS: SODIUM CHLORIDE 0.9% 1,000 ML IV SCH ×2 (06:05→11:00)
[2017-09-13] MEDS: FUROSEMIDE 40 MG TAB PO SCH ×2 (06:06→18:00)
[2017-09-13] MEDS: HYDROcodone-ACET 7.5/325MG TAB PO PRN ×2 (07:00→18:26)
[2017-09-13] MEDS: metFORMIN HYDROCHLORIDE 500 MG TAB PO SCH ×2 (07:02→18:00)
[2017-09-13] MEDS: glipiZIDE 5 MG TAB PO SCH (07:02)
[2017-09-13] MEDS: ACETYLCYSTEINE 10 %(100MG/ML) SOL 4ML NEB SCH ×3 (07:15→22:24)
[2017-09-13] MEDS: Boost Glucose Control 8 Ounces PO SCH ×3 (08:40→17:55)
[2017-09-13] MEDS ORDERED: PANTOPRAZOLE 40 MG TAB PO SCH (10:00)
[2017-09-13] MEDS: CHLORHEXIDINE 0.12% ORAL rinse 473ML MT SCH ×2 (10:35→22:00)
[2017-09-13] MEDS: DOCUSATE SOD 100 MG CAP PO SCH ×2 (10:46→22:00)
[2017-09-13] MEDS: ASPirin 81 mg TAB PO SCH (10:46)
[2017-09-13] MEDS ORDERED: metFORMIN HYDROCHLORIDE 500 MG TAB PO ONE (11:00)
[2017-09-13] MEDS ORDERED: MORPHINE SULFATE 4 MG/ML SYR/VIAL IV PRN ×2 (11:00)
[2017-09-13] MEDS: AZTREONAM 1GM INJ 1 GM in D5W 5% 50 ML IV SCH ×3 (11:22)
[2017-09-13] MEDS: NITROGLYCERIN 0.4MG/HR TOPICAL PATCH TD SCH (11:25)
[2017-09-13] MEDS ORDERED: InsuLIN REG 1unit/0.01ml Soln (100units/ml) SC SCH (12:00)
[2017-09-13] MEDS ORDERED: DEXTROSE (50%) 50ML SYRG IV PRN (12:00)
[2017-09-13] MEDS ORDERED: ACCU-CHEK COMFORT CURVE STRIP VI SCH (12:00)
[2017-09-13] MEDS: SODIUM FERR GLUC 62.5MG/5ML 125 MG in SODIUM CHL 0.9% 100 ML IV SCH (13:08)
[2017-09-13] MEDS: SODIUM CHLORIDE 0.9% 500 ML IV SCH (13:55)
[2017-09-13] MEDS: fentaNYL CITRATE 100 MCG/2 ML VL IV PRN (14:57)
[2017-09-13] MEDS: METOPROLOL TARTRATE 25 MG TAB PO SCH ×2 (17:50→22:00)
[2017-09-13] MEDS ORDERED: metFORMIN HYDROCHLORIDE 500 MG TAB PO SCH (18:00)
[2017-09-13] MEDS: PROCHLORPERAZINE EDISYLATE 5 MG/ML 2ML VIAL IV PRN (19:05)
[2017-09-13] MEDS: AMIODARONE HCL 900 MG in DEXTROSE 500 ML IV SCH (20:05)
[2017-09-13] MEDS: ATORVASTATIN 20 MG TAB PO SCH (22:00)
[2017-09-13] MEDS: PANTOPRAZOLE 40 MG TAB PO SCH (22:00)
[2017-09-13] MEDS: ONDANSETRON HCL 4 MG/2 ML VIAL IV PRN (22:15)
[2017-09-14] VITALS (65 sets, daily range): BP systolic 84–140; BP diastolic 37–98
[2017-09-14] MEDS: NICARDIPINE 25MG/250ML BAG KIT 250 ML IV SCH ×5 (01:55→21:55)
[2017-09-14] MEDS: IPRATROPIUM BROM 0.5 MG/2.5ML INH SOL NEB SCH ×6 (03:16→22:16)
[2017-09-14 05:00] LABS: Basophils # (auto) 0 uL; Basophils % (auto) 0.2 % (0.0-2.0); Eosinophils # (auto) 0 uL; Hemoglobin 7.9 g/dL (12.2-16.2); Lymphocytes # (auto) 1.8 uL; Monocytes # (auto) 0.8 uL; White Blood Cell 11.6 10^3/uL (4.4-10.8)
[2017-09-14 05:03] LABS: Eosinophils % (auto) 0.1 % (0.0-7.0); Hematocrit 23.7 % (36.0-46.0); Lymphocytes % (auto) 15.4 % (10.0-50.0); Mean Corpuscular Hemoglobin 29.9 pg (28.0-32.0); Mean Corpuscular Hgb Conc. 33.3 g/dL (32.0-36.0); Mean Corpuscular Volume 89.8 fL (80.0-100.0); Monocytes % (auto) 7.2 % (0.0-12.0); Neutrophils % (auto) 77.1 % (37.0-80.0); Nucleated Red Blood Cells % 0.1 %; Platelet Count (auto) 155 10^3/uL (140-450); Red Blood Cells 2.64 10^6/uL (4.0-5.20); Red Cell Distribution Width 14.5 % (11.8-14.3)
[2017-09-14 05:15] LABS: Albumin 3.2 g/dL (3.4-5.0); BUN/Creatinine Ratio 17.2; Calcium 7.8 mg/dL (8.5-10.1); Magnesium 1.8 mg/dL (1.6-2.6); Potassium 4.2 mmol/L (3.5-5.1)
[2017-09-14 05:18] LABS: Bilirubin, Total 0.9 mg/dL (0.2-1.0); Total Protein 6.2 g/dL (6.4-8.2)
[2017-09-14] MEDS: FUROSEMIDE 40 MG TAB PO SCH ×2 (06:00→18:00)
[2017-09-14] MEDS: ACETYLCYSTEINE 10 %(100MG/ML) SOL 4ML NEB SCH ×3 (06:00→22:16)
[2017-09-14] MEDS: ONDANSETRON HCL 4 MG/2 ML VIAL IV PRN (06:30)
[2017-09-14] MEDS: glipiZIDE 5 MG TAB PO SCH (06:41)
[2017-09-14] MEDS: ACCU-CHEK COMFORT CURVE STRIP VI SCH ×4 (06:41→21:38)
[2017-09-14] MEDS: metFORMIN HYDROCHLORIDE 500 MG TAB PO SCH ×2 (06:41→18:00)
[2017-09-14] MEDS: InsuLIN REG 1unit/0.01ml Soln (100units/ml) SC SCH ×4 (06:42→21:51)
[2017-09-14] MEDS: Boost Glucose Control 8 Ounces PO SCH ×3 (08:00→18:00)
[2017-09-14] MEDS: METOPROLOL TARTRATE 25 MG TAB PO SCH ×2 (09:30→21:38)
[2017-09-14] MEDS: PROCHLORPERAZINE EDISYLATE 5 MG/ML 2ML VIAL IV PRN ×2 (09:41→20:01)
[2017-09-14] MEDS: ASCORBIC ACID 500 MG TAB PO SCH ×2 (10:52→21:38)
[2017-09-14] MEDS: POTASSIUM CHL 20 Meq TABLET PO SCH ×2 (10:52→21:38)
[2017-09-14] MEDS: SODIUM CHLORIDE 0.9% 1,000 ML IV SCH (10:52)
[2017-09-14] MEDS: PANTOPRAZOLE 40 MG TAB PO SCH ×2 (10:52→21:38)
[2017-09-14] MEDS: CHLORHEXIDINE 0.12% ORAL rinse 473ML MT SCH ×2 (10:52→21:38)
[2017-09-14] MEDS: DOCUSATE SOD 100 MG CAP PO SCH ×2 (10:52→21:38)
[2017-09-14] MEDS: ASPirin 81 mg TAB PO SCH (10:52)
[2017-09-14] MEDS: NITROGLYCERIN 0.4MG/HR TOPICAL PATCH TD SCH (10:53)
[2017-09-14] MEDS: HYDROcodone-ACET 7.5/325MG TAB PO PRN ×3 (11:01→23:06)
[2017-09-14] MEDS: SODIUM FERR GLUC 62.5MG/5ML 125 MG in SODIUM CHL 0.9% 100 ML IV SCH (12:28)
[2017-09-14] MEDS: SODIUM CHLORIDE 0.9% 500 ML IV SCH (13:55)
[2017-09-14] MEDS: AMIODARONE HCL 900 MG in DEXTROSE 500 ML IV SCH (20:05)
[2017-09-14] MEDS: ATORVASTATIN 20 MG TAB PO SCH (21:38)
[2017-09-15] VITALS (17 sets, daily range): BP systolic 96–126; BP diastolic 37–78
[2017-09-15] MEDS: IPRATROPIUM BROM 0.5 MG/2.5ML INH SOL NEB SCH ×4 (02:00→14:06)
[2017-09-15] MEDS: NICARDIPINE 25MG/250ML BAG KIT 250 ML IV SCH ×3 (02:55→11:10)
[2017-09-15 04:37] LABS: Basophils # (auto) 0 uL; Basophils % (auto) 0.3 % (0.0-2.0); Eosinophils # (auto) 0.1 uL; Eosinophils % (auto) 0.9 % (0.0-7.0); Hematocrit 24.1 % (36.0-46.0); Lymphocytes # (auto) 1.7 uL; Mean Corpuscular Volume 89.7 fL (80.0-100.0); Red Blood Cells 2.69 10^6/uL (4.0-5.20); Red Cell Distribution Width 14.1 % (11.8-14.3)
[2017-09-15 04:40] LABS: Hemoglobin 8.1 g/dL (12.2-16.2); Lymphocytes % (auto) 16.6 % (10.0-50.0); Mean Corpuscular Hemoglobin 30.3 pg (28.0-32.0); Mean Corpuscular Hgb Conc. 33.8 g/dL (32.0-36.0); Monocytes # (auto) 0.7 uL; Monocytes % (auto) 7.1 % (0.0-12.0); Neutrophils # (auto) 7.7 uL; Neutrophils % (auto) 75.1 % (37.0-80.0); Platelet Count (auto) 210 10^3/uL (140-450); White Blood Cell 10.3 10^3/uL (4.4-10.8)
[2017-09-15 05:08] LABS: BUN/Creatinine Ratio 17.7; Bilirubin, Total 0.9 mg/dL (0.2-1.0); Calcium 8.5 mg/dL (8.5-10.1); Magnesium 2.1 mg/dL (1.6-2.6); Potassium 4.2 mmol/L (3.5-5.1); Total Protein 6.4 g/dL (6.4-8.2)
[2017-09-15] MEDS: FUROSEMIDE 40 MG TAB PO SCH (06:06)
[2017-09-15] MEDS: ACETYLCYSTEINE 10 %(100MG/ML) SOL 4ML NEB SCH ×2 (06:22→14:06)
[2017-09-15] MEDS: ACCU-CHEK COMFORT CURVE STRIP VI SCH ×2 (06:30→11:10)
[2017-09-15] MEDS: InsuLIN REG 1unit/0.01ml Soln (100units/ml) SC SCH ×2 (06:31→11:30)
[2017-09-15] MEDS: metFORMIN HYDROCHLORIDE 500 MG TAB PO SCH (07:15)
[2017-09-15] MEDS: glipiZIDE 5 MG TAB PO SCH (07:15)
[2017-09-15] MEDS: Boost Glucose Control 8 Ounces PO SCH ×2 (08:00→12:00)
[2017-09-15] MEDS: NITROGLYCERIN 0.4MG/HR TOPICAL PATCH TD SCH (10:00)
[2017-09-15] MEDS: METOPROLOL TARTRATE 25 MG TAB PO SCH (10:00)
[2017-09-15] MEDS ORDERED: MET25T PO (10:06)
[2017-09-15] MEDS ORDERED: POTA20TA53 PO (10:06)
[2017-09-15] MEDS ORDERED: PANT40T PO (10:06)
[2017-09-15] MEDS ORDERED: FURO40TA4 PO (10:06)
[2017-09-15] MEDS ORDERED: ASPI81CH43 PO (10:06)
[2017-09-15] MEDS ORDERED: DOCU100C8 PO (10:06)
[2017-09-15] MEDS: ASCORBIC ACID 500 MG TAB PO SCH (10:42)
[2017-09-15] MEDS: POTASSIUM CHL 20 Meq TABLET PO SCH (10:42)
[2017-09-15] MEDS: DOCUSATE SOD 100 MG CAP PO SCH (10:43)
[2017-09-15] MEDS: PANTOPRAZOLE 40 MG TAB PO SCH (10:43)
[2017-09-15] MEDS: ASPirin 81 mg TAB PO SCH (10:43)
[2017-09-15] MEDS: SODIUM CHLORIDE 0.9% 1,000 ML IV SCH (10:45)
[2017-09-15] MEDS: CHLORHEXIDINE 0.12% ORAL rinse 473ML MT SCH (10:45)
[2017-09-15] MEDS: SODIUM CHLORIDE 0.9% 500 ML IV SCH (11:10)
[2017-09-15] MEDS: SODIUM FERR GLUC 62.5MG/5ML 125 MG in SODIUM CHL 0.9% 100 ML IV SCH (11:10)
[2017-09-15] MEDS ORDERED: FERROUS SULFATE 325 MG TAB PO ONE (13:30)
== END 2017-09-15 19:07 | disposition home health service (06) | DRG 165 ==
LOC: EDBD 19:20 → ER 19:22 → TELE 19:23 → TELE-WESTW 09-05 00:38 → ICU WEST 09-10 20:55
PROVIDERS: ADMIT Nurse Practitioner; ATTEND Internal Medicine
PROC: 4A023N7 Measurement of Cardiac Sampling and Pressure, Left Heart, Percutaneous Approach (ICD-10-PCS; 2017-09-05)
PROC: B2111ZZ Fluoroscopy of Multiple Coronary Arteries using Low Osmolar Contrast (ICD-10-PCS; 2017-09-05)
PROC: 02100Z9 Bypass Coronary Artery, One Artery from Left Internal Mammary, Open Approach (ICD-10-PCS; 2017-09-11)
PROC: 30233N1 Transfusion of Nonautologous Red Blood Cells into Peripheral Vein, Percutaneous Approach (ICD-10-PCS; 2017-09-11)
PROC: 021109W Bypass Coronary Artery, Two Arteries from Aorta with Autologous Venous Tissue, Open Approach (ICD-10-PCS; 2017-09-11)
PROC: 06BQ0ZZ Excision of Left Saphenous Vein, Open Approach (ICD-10-PCS; 2017-09-11)
PROC: 5A09357 Assistance with Respiratory Ventilation, Less than 24 Consecutive Hours, Continuous Positive Airway Pressure (ICD-10-PCS; 2017-09-11)
PROC: 0W9930Z Drainage of Right Pleural Cavity with Drainage Device, Percutaneous Approach (ICD-10-PCS; 2017-09-11)
PROC: 30233R1 Transfusion of Nonautologous Platelets into Peripheral Vein, Percutaneous Approach (ICD-10-PCS; principal; 2017-09-11 07:29)
DX: I21.4 Non-ST elevation (NSTEMI) myocardial infarction (principal); J90 Pleural effusion, not elsewhere classified; I42.9 Cardiomyopathy, unspecified; E11.65 Type 2 diabetes mellitus with hyperglycemia; E66.01 Morbid (severe) obesity due to excess calories; I11.9 Hypertensive heart disease without heart failure; D62 Acute posthemorrhagic anemia; Z68.33 Body mass index [BMI] 33.0-33.9, adult; E78.00 Pure hypercholesterolemia, unspecified; E78.5 Hyperlipidemia, unspecified; I25.110 Atherosclerotic heart disease of native coronary artery with unstable angina pectoris; J98.11 Atelectasis; I25.2 Old myocardial infarction; Z82.49 Family history of ischemic heart disease and other diseases of the circulatory system; Z83.3 Family history of diabetes mellitus; Z98.61 Coronary angioplasty status; Z90.49 Acquired absence of other specified parts of digestive tract
CPT/HCPCS: 10022; 10030; 36415; 36600; 71045; 71046; 71250; 77012; 80048; 80053; 81001; 82805; 82962; 83036; 83735; 83880; 84100; 84132; 84443; 84484; 85014; 85018; 85025; 85576; 85610; 85730; 86850; 86900; 86901; 86920; 87081; 93005; 93306; 93886; 93970; 94002; 94640; 94660; 94668; 96361; 96365; 96367; 97116; 97163; 99152; 99291; A4223; C1729; C1751; C1768; C9113; J0131; J0153; J0610; J1265; J1642; J1644; J1815; J1885; J2250; J2405; J2440; J3480; J7060; P9047

== ENCOUNTER → 2020-01-27 | Emergency (ER) | payer OTHER, MEDICAID ==
[~2020-01-27] VITALS: Ht 170.2 cm; Wt 77.1 kg
[~2020-01-27] MED LIST changes: +ASPI81CH43 PO; -ASPI81TA27 PO; -CLOP75TA28 PO; +DOCU100C8 PO; +FURO40TA4 PO; +GLIP10TA9 PO; +HYDR-4833 PO; -IBUP800T24 PO; +LIDOCAINE 1% HCL (LOCAL ANESTH.) INJ 20ML MDV IJ ONE; +MET25T PO; -METO-158 PO; -NITR400A5 TL; +PANT40T PO; +POTA-220 PO; -RAMI10CA18 PO; +cefTRIAXone SOD 1,000 MG VL IM ONE
[2020-01-27 16:50] VITALS: BP 156/75
== END | disposition home or self-care (01) ==
LOC: ER 16:33 → EDUNIT# 16:33 → EDBD 16:33
DX: S62.603A Fracture of unspecified phalanx of left middle finger, initial encounter for closed fracture (principal); S61.215A Laceration without foreign body of left ring finger without damage to nail, initial encounter; E11.9 Type 2 diabetes mellitus without complications; I10 Essential (primary) hypertension; I25.2 Old myocardial infarction; W26.8XXA Contact with other sharp object(s), not elsewhere classified, initial encounter; Y93.89 Activity, other specified; Y92.89 Other specified places as the place of occurrence of the external cause; Y99.8 Other external cause status
CPT/HCPCS: 12004; 29130; 73130; 96372; 99283; J0696; J2001

== ENCOUNTER 2022-03-03 10:57 | Emergency (ER) | payer OTHER, MEDICAID ==
[~2022-03-03 10:57] MED LIST changes: +DOCU100C10 PO; -DOCU100C8 PO; -LIDOCAINE 1% HCL (LOCAL ANESTH.) INJ 20ML MDV IJ ONE; -cefTRIAXone SOD 1,000 MG VL IM ONE
[2022-03-03 13:29] LABS: Basophils # (auto) 0.1 10 ^3/uL (0-0.2); Eosinophils # (auto) 0.4 10 ^3/uL (0-0.8); Eosinophils % (auto) 5.8 % (0.0-7.0); Hematocrit 35.8 % (36.0-46.0); Hemoglobin 11.4 g/dL (12.2-16.2); Lymphocytes # (auto) 1.8 10 ^3/uL (0.4-5.4); Lymphocytes % (auto) 29.3 % (10.0-50.0); Mean Corpuscular Hemoglobin 27.7 pg (28.0-32.0); Mean Corpuscular Hgb Conc. 31.9 g/dL (32.0-36.0); Mean Corpuscular Volume 86.9 fL (80.0-100.0); Monocytes # (auto) 0.3 10 ^3/uL (0-1.3); Monocytes % (auto) 4.4 % (0.0-12.0); Neutrophils # (auto) 3.7 10 ^3/uL (1.6-8.6); Neutrophils % (auto) 59.5 % (37.0-80.0); Red Blood Cells 4.12 10^6/uL (4.0-5.20); Red Cell Distribution Width 14.4 % (11.8-14.3); White Blood Cell 6.2 10^3/uL (4.4-10.8)
[2022-03-03] MEDS ORDERED: SODIUM CHLORIDE 0.9% 1,000 ML IV ONE (13:30)
[2022-03-03] MEDS ORDERED: ASPirin 81 mg TAB PO ONE (13:30)
[2022-03-03 13:45] LABS: Albumin 3.8 g/dL (3.4-5.0); Calcium 9.6 mg/dL (8.5-10.1); Potassium 4.2 mmol/L (3.5-5.1)
[2022-03-03 13:50] LABS: BUN/Creatinine Ratio 20.4; Bilirubin, Total 0.6 mg/dL (0.2-1.0); Total Protein 7.6 g/dL (6.4-8.2)
[2022-03-03] MEDS ORDERED: CYCL-837 PO (15:58)
[2022-03-03] MEDS ORDERED: DICL50TA2 PO (15:58)
[2022-03-03 16:30] VITALS: BP 124/65
== END 2022-03-03 16:57 | disposition home or self-care (01) ==
LOC: ER 10:57
DX: R07.89 Other chest pain (principal); M62.838 Other muscle spasm; E11.65 Type 2 diabetes mellitus with hyperglycemia; I25.10 Atherosclerotic heart disease of native coronary artery without angina pectoris; I10 Essential (primary) hypertension; I25.2 Old myocardial infarction; Z90.49 Acquired absence of other specified parts of digestive tract; Z95.1 Presence of aortocoronary bypass graft; Z87.891 Personal history of nicotine dependence; Z79.82 Long term (current) use of aspirin; Z79.899 Other long term (current) drug therapy
CPT/HCPCS: 36415; 71046; 80053; 83735; 84484; 85025; 93005

== ENCOUNTER 2022-08-06 05:14 | Emergency (ER) | payer OTHER, MEDICAID ==
[~2022-08-06] VITALS: Ht 167.6 cm; Wt 81.8 kg
[~2022-08-06 05:14] MED LIST changes: +CYCL-837 PO; +DICL50TA2 PO
[2022-08-06 06:15] LABS: Basophils # (auto) 0.1 10 ^3/uL (0-0.2); Basophils % (auto) 1.1 % (0.0-2.0); Eosinophils # (auto) 0.5 10 ^3/uL (0-0.8); Hematocrit 36.5 % (36.0-46.0); Hemoglobin 11.6 g/dL (12.2-16.2); Lymphocytes # (auto) 1.9 10 ^3/uL (0.4-5.4); Lymphocytes % (auto) 28.9 % (10.0-50.0); Mean Corpuscular Hemoglobin 27.9 pg (28.0-32.0); Mean Corpuscular Hgb Conc. 31.8 g/dL (32.0-36.0); Mean Corpuscular Volume 87.8 fL (80.0-100.0); Monocytes # (auto) 0.3 10 ^3/uL (0-1.3); Monocytes % (auto) 5.3 % (0.0-12.0); Neutrophils # (auto) 3.8 10 ^3/uL (1.6-8.6); Neutrophils % (auto) 56.7 % (37.0-80.0); Red Blood Cells 4.16 10^6/uL (4.0-5.20); Red Cell Distribution Width 14.2 % (11.8-14.3); White Blood Cell 6.6 10^3/uL (4.4-10.8)
[2022-08-06 08:05] LABS: Alanine Aminotransferase 22 U/L (13-56); Alkaline Phosphatase 65 U/L (45-117); Anion Gap 7 (5-15); Aspartate Aminotransferase 19 U/L (15-37); BUN/Creatinine Ratio 22.4; Blood Urea Nitrogen 17 mg/dL (7-18); Carbon Dioxide 21 mmol/L (21-32); Chloride 109 mmol/L (98-107); GFR African American 99 mL/min; GFR Non-African American 81 mL/min; Glucose 197 mg/dL (74-106); Potassium 5.5 mmol/L (3.5-5.1); Sodium 137 mmol/L (136-145)
[2022-08-06 08:06] LABS: Albumin 3.8 g/dL (3.4-5.0); Bilirubin, Total 0.8 mg/dL (0.2-1.0); Total Protein 7.2 g/dL (6.4-8.2)
[2022-08-06] MEDS ORDERED: InsuLIN REG 1unit/0.01ml Soln (100units/ml) IV ONE (09:45)
[2022-08-06] MEDS ORDERED: CALCIUM GLUC 1,000mg/50ml-NS 50 ML IV ONE (09:45)
[2022-08-06] MEDS ORDERED: SODIUM ZIRCONIUM CYCL 10 GM PAK PO ONE (09:45)
[2022-08-06] MEDS ORDERED: DEXTROSE (50%) 50ML SYRG IV ONE (09:45)
[2022-08-06 11:33] LABS: Urine Bacteria NONE SEEN /hpf (None Seen); Urine Blood Negative /uL (Negative); Urine Specific Gravity 1.014 (1.001-1.035); Urine WBC <1 /hpf (0 - 5)
[2022-08-06 14:00] VITALS: BP 155/57
== END 2022-08-06 14:28 | disposition home or self-care (01) ==
LOC: EDBD 05:14 → ER 05:14
DX: R07.89 Other chest pain (principal); E87.5 Hyperkalemia; E11.9 Type 2 diabetes mellitus without complications; I10 Essential (primary) hypertension; R42 Dizziness and giddiness; Z87.891 Personal history of nicotine dependence; Z90.49 Acquired absence of other specified parts of digestive tract
CPT/HCPCS: 36415; 71045; 80053; 81001; 82962; 83880; 84132; 84484; 85025; 93005; 96365; 96375; 99285; J0610; J1815; J7042

== ENCOUNTER 2023-01-09 06:40 | Emergency (ER) | payer OTHER ==
[~2023-01-09] VITALS: Ht 170.2 cm; Wt 77.3 kg
[~2023-01-09 06:40] MED LIST changes: +DOCU-265 PO; -DOCU100C10 PO
[2023-01-09 07:21] LABS: Basophils # (auto) 0 10 ^3/uL (0-0.2); Basophils % (auto) 0.4 % (0.0-2.0); Eosinophils # (auto) 0.2 10 ^3/uL (0-0.8); Eosinophils % (auto) 2.5 % (0.0-7.0); Hematocrit 34.8 % (36.0-46.0); Hemoglobin 11.5 g/dL (12.2-16.2); Lymphocytes # (auto) 1.1 10 ^3/uL (0.4-5.4); Lymphocytes % (auto) 11.9 % (10.0-50.0); Mean Corpuscular Hemoglobin 29.1 pg (28.0-32.0); Mean Corpuscular Volume 88.1 fL (80.0-100.0); Monocytes # (auto) 0.5 10 ^3/uL (0-1.3); Monocytes % (auto) 5.5 % (0.0-12.0); Neutrophils # (auto) 7.2 10 ^3/uL (1.6-8.6); Neutrophils % (auto) 79.7 % (37.0-80.0); Nucleated Red Blood Cells % 0.1 %; Red Blood Cells 3.95 10^6/uL (4.0-5.20); Red Cell Distribution Width 14.1 % (11.8-14.3)
[2023-01-09 07:37] LABS: Albumin 3.5 g/dL (3.4-5.0); BUN/Creatinine Ratio 17.3 (10.0-20.0); Calcium 8.8 mg/dL (8.5-10.1); Potassium 4.5 mmol/L (3.5-5.1)
[2023-01-09 07:40] LABS: Bilirubin, Total 0.8 mg/dL (0.2-1.0); Total Protein 7.1 g/dL (6.4-8.2)
[2023-01-09] MEDS ORDERED: LORazepam 2MG/ML-1ML VIAL IV ONE (10:15)
[2023-01-09 14:10] VITALS: BP 159/79
== END 2023-01-09 16:29 | disposition short-term general hospital (02) ==
LOC: EDBD 06:40 → ER 06:40
DX: R07.89 Other chest pain (principal); I10 Essential (primary) hypertension; E11.9 Type 2 diabetes mellitus without complications; I25.2 Old myocardial infarction
CPT/HCPCS: 36415; 71045; 80053; 82962; 83880; 84484; 85025; 93005; 96374; 99285; J2060

== ENCOUNTER 2024-02-21 09:10 | Emergency (ER) | payer OTHER, MEDICAID ==
[~2024-02-21] VITALS: Ht 167.6 cm; Wt 82.1 kg
[~2024-02-21 09:10] MED LIST changes: +ACET500T58 PO
[2024-02-21 09:27] LABS: Basophils # (auto) 0 10 ^3/uL (0-0.2); Basophils % (auto) 0.5 % (0.0-2.0); Eosinophils # (auto) 0.3 10 ^3/uL (0-0.8); Eosinophils % (auto) 4.4 % (0.0-7.0); Hematocrit 36.2 % (36.0-46.0); Hemoglobin 11.9 g/dL (12.2-16.2); Lymphocytes # (auto) 1.4 10 ^3/uL (0.4-5.4); Lymphocytes % (auto) 20.4 % (10.0-50.0); Mean Corpuscular Hemoglobin 29.1 pg (28.0-32.0); Mean Corpuscular Volume 88.1 fL (80.0-100.0); Monocytes # (auto) 0.3 10 ^3/uL (0-1.3); Monocytes % (auto) 4.8 % (0.0-12.0); Neutrophils # (auto) 4.8 10 ^3/uL (1.6-8.6); Neutrophils % (auto) 69.9 % (37.0-80.0); Red Blood Cells 4.11 10^6/uL (4.0-5.20); Red Cell Distribution Width 14.6 % (11.8-14.3); White Blood Cell 6.8 10^3/uL (4.4-10.8)
[2024-02-21 09:46] LABS: Alanine Aminotransferase 25 U/L (7-40); Albumin 4.4 g/dL (3.2-4.8); Alkaline Phosphatase 75 U/L (46-116); Anion Gap 2 (5-15); Aspartate Aminotransferase 18 U/L (13-40); BUN/Creatinine Ratio 15.4 (10.0-20.0); Bilirubin, Total 0.7 mg/dL (0.2-1.0); Blood Urea Nitrogen 14 mg/dL (9-23); Calcium 9.8 mg/dL (8.7-10.4); Carbon Dioxide 24 mmol/L (20-30); Chloride 111 mmol/L (98-107); Glucose 189 mg/dL (74-106); Potassium 5.2 mmol/L (3.5-5.1); Sodium 137 mmol/L (136-145)
[2024-02-21 09:57] LABS: INR 1.02 (0.9-1.15); Prothrombin Time 10.8 sec (9.3-11.8)
[2024-02-21 10:06] LABS: Urine Bacteria FEW /hpf (None Seen); Urine Blood 1+ /uL (Negative); Urine Clarity Clear (Clear); Urine Color Light-Yellow (Yellow); Urine Protein, UAD Negative (Negative); Urine Specific Gravity 1.012 (1.001-1.035); Urine Urobilinogen Normal (Negative); Urine WBC 3 /hpf (0 - 5); Urine pH 5.5 (5.0-9.0)
[2024-02-21 13:00] VITALS: BP 138/57; PULSE 61; RESP 19; TEMP 97.8; O2SAT 100
== END 2024-02-21 13:08 | disposition home or self-care (01) ==
LOC: ER 09:15
DX: I25.810 Atherosclerosis of coronary artery bypass graft(s) without angina pectoris (principal); E87.5 Hyperkalemia; R07.89 Other chest pain; Z90.49 Acquired absence of other specified parts of digestive tract; Z87.891 Personal history of nicotine dependence
CPT/HCPCS: 36415; 71046; 80053; 81001; 84484; 85025; 85610; 85730; 93005